=== PATIENT | male | born 1995 | race Caucasian/White ===

== ENCOUNTER 2017-09-08 09:23 | Emergency (ER) | payer MEDICAID, OTHER ==
[~2017-09-08] VITALS: Ht 162.6 cm; Wt 68.0 kg
[2017-09-08] MEDS ORDERED: IBUPROFEN 400MG TABLET PO ONE (12:15)
[2017-09-08 12:27] VITALS: BP 116/56
== END 2017-09-08 12:48 | disposition home or self-care (01) ==
LOC: ER 09:23
DX: M79.671 Pain in right foot (principal); R60.0 Localized edema; F12.10 Cannabis abuse, uncomplicated
CPT/HCPCS: 99283